=== PATIENT | male | born 1970 | race Caucasian/White ===

== ENCOUNTER 2019-02-17 16:39 | Emergency (ER) | payer SELFPAY ==
[~2019-02-17] VITALS: Ht 180.3 cm; Wt 100.0 kg
[2019-02-17 16:44] VITALS: BP 136/84; Ht 180.3 cm; Wt 100.0 kg
[2019-02-17] MEDS ORDERED: LISINOPRIL10 MG PO (16:45)
[2019-02-17] MEDS ORDERED: NAPROSYN500 MG PO (17:37)
== END 2019-02-17 18:47 | disposition home or self-care (01) ==
LOC: D.ER 16:39
DX: S63.502A Unspecified sprain of left wrist, initial encounter (principal); X58.XXXA Exposure to other specified factors, initial encounter; Y93.9 Activity, unspecified; Y92.89 Other specified places as the place of occurrence of the external cause